=== PATIENT | male | born 1960 | race Caucasian/White ===

== ENCOUNTER 2017-01-30 00:42 | Emergency (ER) | payer OTHER, MEDICARE, MEDICAID ==
[~2017-01-30] VITALS: Ht 172.7 cm; Wt 85.5 kg
[~2017-01-30 00:42] MED LIST: /FENT25PA TD; /QUET10TA OR; ABIL30TA4 OR; ASPI81TA83 OR; CRES40TA OR; ENDOCET PO; FLAG500T OR; FLEXERIL PO; HYDROCODONE/APAP PO; LISI2.5T OR; OXYC10TA97 OR; RISP3TAB16 OR; ROBA500T OR; SERO400T3 OR; TIZA4TAB PO; ZETI10TA OR; ZETI10TA PO
[2017-01-30 00:53] VITALS: BP 139/69
[2017-01-30] MEDS ORDERED: QUET1TAB10 (01:06)
[2017-01-30] MEDS ORDERED: LORA1TAB12 (01:06)
[2017-01-30] MEDS ORDERED: CLOZ100T2 (01:06)
[2017-01-30] MEDS ORDERED: LITH300C (01:06)
[2017-01-30] MEDS ORDERED: HYDR-3719 (01:06)
[2017-01-30] MEDS ORDERED: CLON-412 (01:06)
[2017-01-30] MEDS ORDERED: TOPI50TA4 (01:06)
[2017-01-30] MEDS ORDERED: VITA50003 (01:06)
[2017-01-30] MEDS ORDERED: TIZANIDINE (01:06)
[2017-01-30] MEDS ORDERED: METF1000 (01:06)
== END 2017-01-30 05:09 | disposition left against medical advice (07) ==
LOC: M ED 03:32
DX: Z04.1 Encounter for examination and observation following transport accident (principal); Z53.29 Procedure and treatment not carried out because of patient's decision for other reasons

== ENCOUNTER → 2018-09-21 | Outpatient (REF) | payer MEDICARE, MEDICAID ==
[~2018-09-21] MED LIST changes: +CLON-412; +CLOZ100T2; +HYDR-3719; +LITH300C; +LORA1TAB12; +METF10004; +QUET1TAB10; +TIZANIDINE; +TOPI50TA9; +VITA50005
== END ==
LOC: M LAB REF 14:13
PROVIDERS: ATTEND Physician Assistant
DX: J02.9 Acute pharyngitis, unspecified (principal)

== ENCOUNTER 2019-04-01 13:42 | Emergency (ER) | payer OTHER, MEDICARE, MEDICAID ==
[~2019-04-01] VITALS: Ht 175.3 cm; Wt 90.9 kg
[~2019-04-01 13:42] MED LIST changes: -/FENT25PA TD; -/QUET10TA OR; +FENT1DIS14 TD; +SERO1TAB OR
[2019-04-01 17:16] LABS: BASO # 0.1 10^3/uL (0.0-0.2); BASO % 0.7 % (0.0-1.0); EOS # 0.3 10^3/uL (0.0-0.50); EOS % 3.1 % (0.0-3.0); HEMATOCRIT 49.4 % (42.0-52.0); HEMOGLOBIN 15.8 g/dl (13.5-17.5); LYMPH # 2.9 10^3/uL (1.5-4.5); MEAN CORPUSCULAR HEMOGLOBIN 27.7 pg (27.0-33.0); MEAN CORPUSCULAR VOLUME 86.7 fl (80.0-96.0); MONO # 0.6 10^3/uL (0.0-0.8); MONO % 6.7 % (0.0-5.0); NEUTROPHILS # 5.5 10^3/uL (1.8-7.7); NEUTROPHILS % 58.2 % (36.0-66.0); PLATELET COUNT, AUTOMATED 209 10^3/uL (150-450); WHITE BLOOD COUNT 9.4 10^3/uL (4.0-10.0)
[2019-04-01] MEDS ORDERED: METAXALONE 800 MG TABLET PO ONE (19:45)
[2019-04-01] MEDS ORDERED: KETOROLAC 30 MG/ML VIAL (J1885) IM ONE (19:45)
[2019-04-01] MEDS ORDERED: SKEL800T97 PO (20:37)
[2019-04-01 20:47] VITALS: BP 154/74
[2019-04-01] MEDS ORDERED: CYCL10TA PO (20:49)
== END 2019-04-01 20:47 | disposition home or self-care (01) ==
LOC: M ED 13:42
DX: S39.012A Strain of muscle, fascia and tendon of lower back, initial encounter (principal); M54.17 Radiculopathy, lumbosacral region; X50.9XXA Other and unspecified overexertion or strenuous movements or postures, initial encounter; Y92.092 Bedroom in other non-institutional residence as the place of occurrence of the external cause; Y93.89 Activity, other specified; Y99.9 Unspecified external cause status; Z96.9 Presence of functional implant, unspecified; I10 Essential (primary) hypertension; E78.5 Hyperlipidemia, unspecified; F41.9 Anxiety disorder, unspecified; F32.9 Major depressive disorder, single episode, unspecified; Z86.19 Personal history of other infectious and parasitic diseases; Z72.0 Tobacco use; J30.89 Other allergic rhinitis; Z88.8 Allergy status to other drugs, medicaments and biological substances
CPT/HCPCS: 72131; 80047; 85025; 96372; 99283; J1885

== ENCOUNTER 2020-03-02 09:56 | Emergency (ER) | payer OTHER, MEDICARE, MEDICAID ==
[~2020-03-02 09:56] MED LIST changes: +CYCL-707 PO; -LORA1TAB12; +LORA1TAB4; +SKEL800T97 PO
[2020-03-02] MEDS ORDERED: methocarbamoL 500 MG TAB ONE (10:12)
[2020-03-02] MEDS ORDERED: KETOROLAC 30 MG/ML 1ML VIAL ONE (10:12)
--- NOTE | 2020-04-24 10:52 | REP ---
NONCONTRAST CT OF THE LUMBOSACRAL SPINE: HISTORY: Lower back pain and sciatica. TECHNIQUE: Axial noncontrast images from T11 through S1 with coronary and sagittal reformations. FINDINGS: Alignment and lordosis maintained. Advanced degenerative disc osteophyte complex at L5-S1 includes endplate sclerosis, anterior and posterior osteophytosis, significant disc space narrowing with vacuum phenomenon and small posterior disc bulge as well as hypertrophic facet changes which cause mild canal stenosis. No obvious impingement to the exiting nerve roots noted. There is a small posterior disc bulge at the L4-5 level with minimal disc space narrowing and mild hypertrophic facet changes causing minimal canal stenosis. There is no impingement to the exiting nerve roots. There is a small disc bulge at the L3-4 level with mild hypertrophic facet changes and minimal disc space narrowing. There is no evidence for impingement on the exiting nerve roots. The remainder of the lumbar spine appears relatively age appropriate. There is no evidence for acute fracture/compression injury. Alignment is maintained. IMPRESSION: 1. Degenerative spondylosis as described above, most notably involving the L5-S1 and L4-5 levels. 2. No acute fracture/compression injury or subluxation. MTDD
== END 2020-03-02 11:50 | disposition home or self-care (01) ==
LOC: M ED 09:56
DX: M54.42 Lumbago with sciatica, left side (principal); M51.37 Other intervertebral disc degeneration, lumbosacral region; Z91.030 Bee allergy status
CPT/HCPCS: 72131; 96372; 99282; J1885

== ENCOUNTER 2023-11-24 15:18 | Emergency (ER) | payer MEDICARE, MEDICAID ==
[~2023-11-24] VITALS: Ht 177.8 cm; Wt 86.6 kg
[2023-11-24 15:18] VITALS: TEMP 97
[~2023-11-24 15:18] MED LIST changes: -CLOZ100T2; +CLOZ100T5; +LORA1TAB23; -LORA1TAB4; -QUET1TAB10; +QUET300T2; +TOPI-21; -TOPI50TA9
[2023-11-24 16:07] LABS: BASO # 0.1 10^3/uL (0.0-0.2); BASO % 0.5 % (0.0-1.0); EOS # 0.2 10^3/uL (0.0-0.5); HEMATOCRIT 43.5 % (42.0-52.0); HEMOGLOBIN 13.3 g/dl (13.5-17.5); LYMPH # 1.5 10^3/uL (1.5-5.0); LYMPH % 16.2 % (24.0-44.0); MEAN CORPUSCULAR HEMOGLOBIN 27.5 pg (27.0-33.0); MEAN CORPUSCULAR HGB CONC 30.6 g/dl (32.0-36.5); MEAN CORPUSCULAR VOLUME 89.9 fl (80.0-96.0); MONO # 0.8 10^3/uL (0.0-0.8); MONO % 8.6 % (2.0-8.0); NEUTROPHILS # 6.7 10^3/uL (1.5-8.5); NEUTROPHILS % 72.5 % (36.0-66.0); PLATELET COUNT, AUTOMATED 201 10^3/uL (150-450); RED BLOOD COUNT 4.84 10^6/uL (4.30-6.10); WHITE BLOOD COUNT 9.2 10^3/uL (4.0-10.0)
[2023-11-24 16:22] VITALS: BP 190/112
[2023-11-24 16:22] LABS: D-DIMER QUANT 1.8 ug/mL (<0.5); INR 1.08; PARTIAL THROMBOPLASTIN TIME 25.2 SECONDS (24.8-34.2); PROTHROMBIN TIME 13.7 SECONDS (12.5-14.5)
[2023-11-24] MEDS: LABETALOL 100MG/20ML VIAL IV STA (16:22)
[2023-11-24 16:30] LABS: LIPASE 25 U/L (12-53)
[2023-11-24 16:32] LABS: ALBUMIN 2.3 G/DL (3.2-5.2); ALKALINE PHOSPHATASE 139 U/L (46-116); ALT/SGPT 37 U/L (7.0-40); AST/SGOT 23 U/L (<34); BILIRUBIN,DIRECT 0.1 MG/DL (<0.4); BILIRUBIN,TOTAL 0.3 MG/DL (0.3-1.2); BLOOD UREA NITROGEN 21 MG/DL (9-23); CALCIUM LEVEL 8.5 MG/DL (8.3-10.6); CARBON DIOXIDE LEVEL 31 MMOL/L (20-31); CHLORIDE LEVEL 106 MMOL/L (98-107); CK-MB VALUE MASS 5.1 NG/ML (<3.6); CREATININE FOR GFR 0.95 MG/DL (0.70-1.30); GLOMERULAR FILTRATION RATE > 60.0 (>49); GLUCOSE, FASTING 141 MG/DL (74-106); POTASSIUM SERUM 4.4 MMOL/L (3.5-5.1); SODIUM LEVEL 142 MMOL/L (136-145); TOTAL PROTEIN 5.8 G/DL (5.7-8.2)
[2023-11-24 16:36] LABS: FREE T4 1.08 NG/DL (0.89-1.76); THYROID STIMULATING HORMONE 2.096 uIU/ML (0.55-4.78)
[2023-11-24] MEDS ORDERED: ISOVUE-370 76% 100ML VIAL As Ordered ONE (16:38)
[2023-11-24 16:43] LABS: CPK CREATINE PHOSPHOKINASE 91 U/L (46-171)
[2023-11-24 17:33] LABS: CK-MB VALUE MASS 4.4 NG/ML (<3.6)
[2023-11-24 17:34] LABS: MB/CK RELATIVE INDEX 5.71 (< OR =4)
[2023-11-24] MEDS ORDERED: HEPARIN SOD (PORCINE) 5000UNITS/ML 1ML VIAL/SYRINGE IV ONE (17:45)
[2023-11-24] MEDS ORDERED: HEPARIN DRIP 25,000 UNITS in IV 1 EA IV SCH (17:45)
[2023-11-24] MEDS: FUROSEMIDE 40MG/4ML VIAL IV ONE (17:58)
[2023-11-24] MEDS: ASPIRIN 81MG CHEW TABLET PO ONE (17:58)
[2023-11-24 18:00] VITALS: BP 150/88; O2SAT 91
== END 2023-11-24 18:22 | disposition left against medical advice (07) ==
LOC: M ED 15:18
DX: I21.4 Non-ST elevation (NSTEMI) myocardial infarction (principal); I50.22 Chronic systolic (congestive) heart failure; I45.10 Unspecified right bundle-branch block; E11.9 Type 2 diabetes mellitus without complications; I11.0 Hypertensive heart disease with heart failure; E78.5 Hyperlipidemia, unspecified; F17.210 Nicotine dependence, cigarettes, uncomplicated; Z88.8 Allergy status to other drugs, medicaments and biological substances; Z91.030 Bee allergy status; Z53.9 Procedure and treatment not carried out, unspecified reason
CPT/HCPCS: 71045; 71275; 80048; 80076; 82550; 82553; 83690; 83880; 84439; 84443; 84484; 85025; 85379; 85610; 85730; 93005; 93041; 93970; 94760; 96374; 96375; 99284; J1920; J1940; Q9967

== ENCOUNTER 2023-12-28 05:51 | Emergency (ER) | payer MEDICARE, MEDICAID ==
[~2023-12-28] VITALS: Ht 172.7 cm; Wt 85.9 kg
[2023-12-28 06:22] LABS: VENOUS BASE EXCESS -0.9 (-2.0-2.0); VENOUS O2 SATURATION 89.2 % (60.0-80.0); VENOUS PARTIAL PRESSURE CO2 40.9 mmHg (38.0-50.0); VENOUS PARTIAL PRESSURE O2 59.3 mmHg (30.0-50.0); VENOUS PH 7.387 UNITS (7.330-7.430); VENOUS STANDARD HCO3 23.5 MMOL/L; VENOUS TOTAL CO2 25.3 MMOL/L (24.0-28.0)
[2023-12-28 06:27] LABS: BASO # 0.1 10^3/uL (0.0-0.2); BASO % 0.7 % (0.0-1.0); EOS # 0.2 10^3/uL (0.0-0.5); EOS % 1.5 % (0.0-3.0); HEMATOCRIT 42.1 % (42.0-52.0); HEMOGLOBIN 13.2 g/dl (13.5-17.5); LYMPH # 1.4 10^3/uL (1.5-5.0); LYMPH % 13.7 % (24.0-44.0); MEAN CORPUSCULAR HEMOGLOBIN 27.2 pg (27.0-33.0); MEAN CORPUSCULAR HGB CONC 31.4 g/dl (32.0-36.5); MEAN CORPUSCULAR VOLUME 86.8 fl (80.0-96.0); MONO # 0.8 10^3/uL (0.0-0.8); MONO % 7.8 % (2.0-8.0); NEUTROPHILS # 7.8 10^3/uL (1.5-8.5); NEUTROPHILS % 75.9 % (36.0-66.0); PLATELET COUNT, AUTOMATED 233 10^3/uL (150-450); RED BLOOD COUNT 4.85 10^6/uL (4.30-6.10); WHITE BLOOD COUNT 10.3 10^3/uL (4.0-10.0)
[2023-12-28 06:57] LABS: ALBUMIN 2.4 G/DL (3.2-5.2); ALKALINE PHOSPHATASE 156 U/L (46-116); ALT/SGPT 35 U/L (7.0-40); AST/SGOT 28 U/L (<34); BILIRUBIN,DIRECT 0.2 MG/DL (<0.4); BILIRUBIN,TOTAL 0.7 MG/DL (0.3-1.2); BLOOD UREA NITROGEN 19 MG/DL (9-23); CALCIUM LEVEL 8.6 MG/DL (8.3-10.6); CARBON DIOXIDE LEVEL 26 MMOL/L (20-31); CHLORIDE LEVEL 106 MMOL/L (98-107); CK-MB VALUE MASS 2.8 NG/ML (<3.6); CREATININE FOR GFR 1.07 MG/DL (0.70-1.30); GLOMERULAR FILTRATION RATE > 60.0 (>49); GLUCOSE, FASTING 130 MG/DL (74-106); POTASSIUM SERUM 4.5 MMOL/L (3.5-5.1); SODIUM LEVEL 137 MMOL/L (136-145); TOTAL PROTEIN 5.7 G/DL (5.7-8.2)
[2023-12-28 06:59] LABS: CPK CREATINE PHOSPHOKINASE 88 U/L (46-171); MB/CK RELATIVE INDEX 3.18 (< OR =4)
[2023-12-28] MEDS: FUROSEMIDE 40MG/4ML VIAL IV ONE (07:47)
[2023-12-28] MEDS: ASPIRIN 81MG CHEW TABLET PO ONE (07:47)
[2023-12-28] MEDS ORDERED: ISOVUE-370 76% 100ML VIAL As Ordered ONE (08:04)
[2023-12-28] MEDS ORDERED: HOME MED LIST COMPLETE! XX SCH (09:25)
[2023-12-28] MEDS ORDERED: HEPARIN SOD (PORCINE) 5000UNITS/ML 1ML VIAL/SYRINGE IV PRN (09:30)
[2023-12-28] MEDS ORDERED: HEPARIN SOD (PORCINE) 5000UNITS/ML 1ML VIAL/SYRINGE IV ONE (09:30)
[2023-12-28] MEDS: HEPARIN SOD (PORCINE) 5000UNITS/ML 1ML VIAL/SYRINGE IV ONE (10:31)
[2023-12-28] MEDS: HEPARIN DRIP 25,000 UNITS in IV 1 EA IV SCH (10:35)
[2023-12-28] MEDS ORDERED: IPRATROPIUM 0.5MG/ALBUTEROL 2.5MG INH SOL UD 3ML (DUONEB) NEB PRN (11:50)
[2023-12-28] MEDS: POTASSIUM CHLORIDE 10MEQ SR TABLET PO ONE (12:50)
[2023-12-28 14:00] VITALS: TEMP 97.9
[2023-12-28] MEDS: FUROSEMIDE 40MG/4ML VIAL IV SCH ×2 (14:09→21:51)
[2023-12-28 17:10] LABS: BLOOD UREA NITROGEN 20 MG/DL (9-23); CALCIUM LEVEL 8.5 MG/DL (8.3-10.6); CARBON DIOXIDE LEVEL 29 MMOL/L (20-31); CHLORIDE LEVEL 107 MMOL/L (98-107); GLOMERULAR FILTRATION RATE > 60.0 (>49); GLUCOSE, FASTING 95 MG/DL (74-106); POTASSIUM SERUM 4.2 MMOL/L (3.5-5.1); SODIUM LEVEL 144 MMOL/L (136-145)
[2023-12-28] MEDS: POTASSIUM CHLORIDE 10MEQ SR TABLET PO SCH (21:51)
[2023-12-28] MEDS: cefTRIAXone SOD 2 GM in D5W MINI-BAG PLUS 50 ML IV ONE (23:41)
[2023-12-29 05:00] VITALS: BP 142/97
[2023-12-29 05:45] VITALS: O2SAT 95
== END 2023-12-29 06:23 | disposition short-term general hospital (02) ==
LOC: M ED 05:51
DX: I21.4 Non-ST elevation (NSTEMI) myocardial infarction (principal); I50.32 Chronic diastolic (congestive) heart failure; I27.20 Pulmonary hypertension, unspecified; J90 Pleural effusion, not elsewhere classified; R91.1 Solitary pulmonary nodule; R18.8 Other ascites; R00.0 Tachycardia, unspecified; I45.19 Other right bundle-branch block; I44.4 Left anterior fascicular block; J44.9 Chronic obstructive pulmonary disease, unspecified; F17.200 Nicotine dependence, unspecified, uncomplicated; F10.10 Alcohol abuse, uncomplicated; Z91.030 Bee allergy status; Z88.8 Allergy status to other drugs, medicaments and biological substances
CPT/HCPCS: 71045; 71275; 80048; 80076; 82550; 82553; 82803; 83735; 83880; 84484; 85025; 85730; 87486; 87581; 87633; 87798; 93005; 93041; 93306; 93971; 94760; 96365; 96366; 96375; 96376; 99285; J0696; J1940; Q9967

== ENCOUNTER → 2024-01-04 | Outpatient (CLI) | payer MEDICARE, MEDICAID ==
[2024-01-04 16:22] LABS: HEMOGLOBIN A1c 6.6 % (4.0-6.0)
[2024-01-04 16:29] LABS: BLOOD UREA NITROGEN 25 MG/DL (9-23); CALCIUM LEVEL 9.1 MG/DL (8.3-10.6); CARBON DIOXIDE LEVEL 33 MMOL/L (20-31); CHLORIDE LEVEL 105 MMOL/L (98-107); CHOLESTEROL LEVEL 169 MG/DL (<200); CHOLESTEROL RISK RATIO 3.55 (<5); CREATININE FOR GFR 1.06 MG/DL (0.70-1.30); GLOMERULAR FILTRATION RATE > 60.0 (>49); GLUCOSE, FASTING 92 MG/DL (74-106); HDL CHOLESTEROL 47.5 MG/DL (>40); LDL CHOLESTEROL 106.5 MG/DL (<100); NON-HDL-C 121.5 MG/DL; POTASSIUM SERUM 4.7 MMOL/L (3.5-5.1); SODIUM LEVEL 141 MMOL/L (136-145); TRIGLYCERIDES LEVEL 75 MG/DL (<150)
== END ==
LOC: M PLALAB 13:42
PROVIDERS: ATTEND Student in an Organized Health Care Education/Training Program
DX: I50.40 Unspecified combined systolic (congestive) and diastolic (congestive) heart failure (principal); Z79.899 Other long term (current) drug therapy

== ENCOUNTER → 2024-02-16 | Outpatient (CLI) | payer MEDICARE, MEDICAID ==
[2024-02-16 18:07] LABS: BLOOD UREA NITROGEN 22 MG/DL (9-23); CALCIUM LEVEL 9.5 MG/DL (8.3-10.6); CARBON DIOXIDE LEVEL 32 MMOL/L (20-31); CHLORIDE LEVEL 106 MMOL/L (98-107); CREATININE FOR GFR 0.89 MG/DL (0.70-1.30); GLOMERULAR FILTRATION RATE > 60.0 (>49); GLUCOSE, FASTING 94 MG/DL (74-106); POTASSIUM SERUM 4.7 MMOL/L (3.5-5.1); SODIUM LEVEL 140 MMOL/L (136-145)
== END ==
LOC: M PLAIMG 16:32
PROVIDERS: ATTEND Student in an Organized Health Care Education/Training Program
DX: I50.40 Unspecified combined systolic (congestive) and diastolic (congestive) heart failure (principal)

== ENCOUNTER → 2024-02-18 | Outpatient (REF) | payer MEDICARE, MEDICAID | LOC: M SFHCPLAZ 11:14 | PROVIDERS: ATTEND Family Medicine | DX: I50.40 Unspecified combined systolic (congestive) and diastolic (congestive) heart failure (principal) ==

== ENCOUNTER → 2024-04-02 | Outpatient (CLI) | payer MEDICARE, MEDICAID | LOC: M RAD 13:06 | PROVIDERS: ATTEND Student in an Organized Health Care Education/Training Program | DX: M79.661 Pain in right lower leg (principal) ==

== ENCOUNTER 2024-08-06 23:04 | Emergency (ER) | payer MEDICARE, MEDICAID ==
[~2024-08-06] VITALS: Ht 172.7 cm; Wt 76.6 kg
[2024-08-06 23:51] LABS: BASO % 0.3 % (0.0-1.0); EOS # 0.1 10^3/uL (0.0-0.5); EOS % 0.6 % (0.0-3.0); HEMATOCRIT 44.9 % (42.0-52.0); HEMOGLOBIN 14.8 g/dl (13.5-17.5); LYMPH # 1.3 10^3/uL (1.5-5.0); LYMPH % 16.6 % (24.0-44.0); MEAN CORPUSCULAR HEMOGLOBIN 27.6 pg (27.0-33.0); MEAN CORPUSCULAR VOLUME 83.8 fl (80.0-96.0); MONO # 0.9 10^3/uL (0.0-0.8); MONO % 11.1 % (2.0-8.0); NEUTROPHILS # 5.5 10^3/uL (1.5-8.5); PLATELET COUNT, AUTOMATED 179 10^3/uL (150-450); RED BLOOD COUNT 5.36 10^6/uL (4.30-6.10); WHITE BLOOD COUNT 7.7 10^3/uL (4.0-10.0)
[2024-08-07 00:30] LABS: BLOOD UREA NITROGEN 19 MG/DL (9-23); CALCIUM LEVEL 8.2 MG/DL (8.3-10.6); CARBON DIOXIDE LEVEL 27 MMOL/L (20-31); CHLORIDE LEVEL 98 MMOL/L (98-107); CK-MB VALUE MASS < 1.0 NG/ML (<3.6); CPK CREATINE PHOSPHOKINASE 81 U/L (46-171); CREATININE FOR GFR 0.88 MG/DL (0.70-1.30); GLOMERULAR FILTRATION RATE > 60.0 (>49); GLUCOSE, FASTING 100 MG/DL (74-106); MB/CK RELATIVE INDEX 1.23 (< OR =4); POTASSIUM SERUM 4.2 MMOL/L (3.5-5.1); SODIUM LEVEL 132 MMOL/L (136-145)
[2024-08-07] MEDS ORDERED: ISOVUE-370 76% 100ML VIAL As Ordered ONE (00:56)
[2024-08-07] MEDS: methylPREDNISolone 125MG 2ML VIAL IV ONE (00:56)
[2024-08-07] MEDS: IPRATROPIUM 0.5MG/ALBUTEROL 2.5MG INH SOL UD 3ML (DUONEB) NEB ONE (00:56)
[2024-08-07 01:08] LABS: CK-MB VALUE MASS < 1.0 NG/ML (<3.6)
[2024-08-07 01:10] LABS: CPK CREATINE PHOSPHOKINASE 84 U/L (46-171); MB/CK RELATIVE INDEX 1.19 (< OR =4)
[2024-08-07 03:10] LABS: CK-MB VALUE MASS < 1.0 NG/ML (<3.6)
[2024-08-07 03:11] LABS: CPK CREATINE PHOSPHOKINASE 80 U/L (46-171); MB/CK RELATIVE INDEX 1.25 (< OR =4)
[2024-08-07] MEDS ORDERED: PRED20TA PO (03:16)
[2024-08-07 03:22] VITALS: BP 109/59; TEMP 98.8; O2SAT 94
== END 2024-08-07 03:23 | disposition left against medical advice (07) ==
LOC: M ED 23:04
DX: J09.X2 Influenza due to identified novel influenza A virus with other respiratory manifestations (principal); R09.02 Hypoxemia; I45.10 Unspecified right bundle-branch block; I44.4 Left anterior fascicular block; I25.119 Atherosclerotic heart disease of native coronary artery with unspecified angina pectoris; I50.22 Chronic systolic (congestive) heart failure; I25.2 Old myocardial infarction; F17.210 Nicotine dependence, cigarettes, uncomplicated; F10.10 Alcohol abuse, uncomplicated; Z91.030 Bee allergy status; Z88.8 Allergy status to other drugs, medicaments and biological substances; Z79.52 Long term (current) use of systemic steroids; Z53.9 Procedure and treatment not carried out, unspecified reason
CPT/HCPCS: 71045; 71275; 80048; 82550; 82553; 84484; 85025; 87486; 87581; 87633; 87798; 93005; 93041; 94640; 94760; 96374; 99285; J2919; Q9967

== ENCOUNTER → 2025-03-05 | Outpatient (REF) | payer MEDICARE, MEDICAID ==
[~2025-03-05] MED LIST changes: +PRED20TA PO
== END ==
LOC: M SFHCPLAZ 12:25
PROVIDERS: ATTEND Family Medicine
DX: Z53.9 Procedure and treatment not carried out, unspecified reason (principal)

== ENCOUNTER 2025-03-15 05:51 | Emergency (ER) | payer MEDICARE, MEDICAID ==
[~2025-03-15] VITALS: Ht 175.3 cm; Wt 79.5 kg
[2025-03-15 06:13] LABS: BASO # 0.1 10^3/uL (0.0-0.2); BASO % 0.6 % (0.0-1.0); EOS # 0.3 10^3/uL (0.0-0.5); EOS % 2.4 % (0.0-3.0); LYMPH # 1.8 10^3/uL (1.5-5.0); LYMPH % 16.5 % (24.0-44.0); MONO # 0.9 10^3/uL (0.0-0.8); MONO % 8.1 % (2.0-8.0); NEUTROPHILS # 8.0 10^3/uL (1.5-8.5); NEUTROPHILS % 72.0 % (36.0-66.0); PLATELET COUNT, AUTOMATED 271 10^3/uL (150-450)
[2025-03-15 06:25] LABS: INR 0.89
[2025-03-15] MEDS ORDERED: NITROGLYCERIN 0.4 MG SUBL TABLET SL PRN (06:50)
[2025-03-15] MEDS: ACETAMINOPHEN 500 MG TAB PO ONE (07:23)
[2025-03-15 08:00] LABS: ALT/SGPT 24.0 U/L (7.0-40); AST/SGOT 30.0 U/L (<34); CALCIUM LEVEL 8.2 MG/DL (8.3-10.6); CARBON DIOXIDE LEVEL 27.0 MMOL/L (20-31); CHLORIDE LEVEL 103.0 MMOL/L (98-107); CK-MB VALUE MASS 1.1 NG/ML (<3.6); CPK CREATINE PHOSPHOKINASE 42.0 U/L (46-171); CREATININE FOR GFR 0.93 MG/DL (0.70-1.30); GLOMERULAR FILTRATION RATE 90.0 (>49); MB/CK RELATIVE INDEX 2.61 (< OR =4); POTASSIUM SERUM 5.1 MMOL/L (3.5-5.1); SODIUM LEVEL 139.0 MMOL/L (136-145)
[2025-03-15 08:54] LABS: CK-MB VALUE MASS 1.0 NG/ML (<3.6)
[2025-03-15 08:56] LABS: CPK CREATINE PHOSPHOKINASE 30.0 U/L (46-171); MB/CK RELATIVE INDEX 3.33 (< OR =4)
[2025-03-15] MEDS ORDERED: METF10004 PO (10:19)
[2025-03-15] MEDS ORDERED: ATOR40TA75 PO (10:19)
[2025-03-15] MEDS ORDERED: NITR0.3S4 PO (10:19)
[2025-03-15] MEDS ORDERED: JARD1TAB PO (10:19)
[2025-03-15] MEDS ORDERED: METO1TAB32 PO (10:19)
[2025-03-15] MEDS ORDERED: FURO40TA2 PO (10:19)
[2025-03-15] MEDS ORDERED: TRAM50TA2 PO (10:19)
[2025-03-15] MEDS ORDERED: EPIN0.3I11 INJ (10:19)
[2025-03-15] MEDS ORDERED: CYCL-707 PO (10:19)
[2025-03-15] MEDS ORDERED: LISI10TA22 PO (10:19)
[2025-03-15] MEDS ORDERED: SPIR-10 PO (10:19)
[2025-03-15] MEDS ORDERED: HOME MED LIST COMPLETE! XX SCH (10:20)
[2025-03-15 11:28] LABS: CK-MB VALUE MASS 1.7 NG/ML (<3.6); CPK CREATINE PHOSPHOKINASE 33.0 U/L (46-171); MB/CK RELATIVE INDEX 5.15 (< OR =4)
[2025-03-15 11:46] VITALS: BP 136/64; O2SAT 97
[2025-03-15 12:06] VITALS: TEMP 97.6
== END 2025-03-15 12:07 | disposition home or self-care (01) ==
LOC: M ED 05:51
DX: R07.9 Chest pain, unspecified (principal); I45.10 Unspecified right bundle-branch block; E11.9 Type 2 diabetes mellitus without complications; I10 Essential (primary) hypertension; F17.200 Nicotine dependence, unspecified, uncomplicated; Z91.030 Bee allergy status; Z88.8 Allergy status to other drugs, medicaments and biological substances; Z79.02 Long term (current) use of antithrombotics/antiplatelets; Z79.4 Long term (current) use of insulin; Z79.899 Other long term (current) drug therapy

== ENCOUNTER → 2025-03-27 | Outpatient (CLI) | payer MEDICARE, MEDICAID ==
[~2025-03-27] MED LIST changes: +ATOR40TA75 PO; +EPIN0.3I11 INJ; +FURO40TA2 PO; +JARD1TAB PO; +LISI10TA22 PO; +METF10004 PO; +METO1TAB32 PO; +NITR0.3S4 PO; +SPIR-10 PO; +TRAM50TA2 PO
== END ==
LOC: M SOG 08:27
PROVIDERS: ATTEND Orthopaedic Surgery
DX: R10.2 Pelvic and perineal pain (principal); M16.0 Bilateral primary osteoarthritis of hip

== ENCOUNTER → 2025-05-20 | Outpatient (CLI) | payer MEDICARE, MEDICAID ==
[2025-05-20 12:04] LABS: PLATELET COUNT, AUTOMATED 332 10^3/uL (150-450)
[2025-05-20 12:32] LABS: CALCIUM LEVEL 8.4 MG/DL (8.3-10.6); CARBON DIOXIDE LEVEL 32 MMOL/L (20-31); CHLORIDE LEVEL 103 MMOL/L (98-107); CREATININE FOR GFR 0.80 MG/DL (0.70-1.30); GLOMERULAR FILTRATION RATE > 90.0 (>49); PHOSPHORUS LEVEL 2.8 MG/DL (2.4-5.1); POTASSIUM SERUM 4.4 MMOL/L (3.5-5.1); SODIUM LEVEL 141 MMOL/L (136-145)
== END ==
LOC: M LAB 11:18
PROVIDERS: ATTEND Internal Medicine Cardiovascular Disease
DX: Z01.810 Encounter for preprocedural cardiovascular examination (principal); I50.42 Chronic combined systolic (congestive) and diastolic (congestive) heart failure; I11.0 Hypertensive heart disease with heart failure

== ENCOUNTER → 2025-05-27 | Outpatient (CLI) | payer MEDICARE, MEDICAID ==
[~2025-05-27] MED LIST changes: +ISOVUE-300 61% 100 ML VIAL As Ordered ONE; +methylPREDNISolone SUSP 40 MG/ML 1 ML VIAL As Ordered ONE
== END ==
LOC: M RAD 14:18
PROVIDERS: ATTEND Orthopaedic Surgery
DX: M16.0 Bilateral primary osteoarthritis of hip (principal)
CPT/HCPCS: 20610; 77002; J0665; J1010; Q9967

== ENCOUNTER → 2025-07-17 | Outpatient (CLI) | payer MEDICARE, MEDICAID ==
[~2025-07-17] MED LIST changes: -ISOVUE-300 61% 100 ML VIAL As Ordered ONE; -methylPREDNISolone SUSP 40 MG/ML 1 ML VIAL As Ordered ONE
[2025-07-17 13:55] LABS: BASO # 0.1 10^3/uL (0.0-0.2); BASO % 0.9 % (0.0-1.0); EOS # 0.3 10^3/uL (0.0-0.5); EOS % 2.5 % (0.0-3.0); LYMPH # 2.1 10^3/uL (1.5-5.0); LYMPH % 19.5 % (24.0-44.0); MONO # 0.9 10^3/uL (0.0-0.8); MONO % 8.1 % (2.0-8.0); NEUTROPHILS # 7.2 10^3/uL (1.5-8.5); NEUTROPHILS % 68.4 % (36.0-66.0); PLATELET COUNT, AUTOMATED 284 10^3/uL (150-450)
[2025-07-17 14:16] LABS: INR 0.95
[2025-07-17 14:30] LABS: ALT/SGPT 33 U/L (7.0-40); AST/SGOT 24 U/L (<34); C REACTIVE PROTEIN QUANTITATIV < 0.50 MG/DL (<1.0); CALCIUM LEVEL 8.4 MG/DL (8.3-10.6); CARBON DIOXIDE LEVEL 30 MMOL/L (20-31); CHLORIDE LEVEL 104 MMOL/L (98-107); CREATININE FOR GFR 0.94 MG/DL (0.70-1.30); GLOMERULAR FILTRATION RATE 88.9 (>49); POTASSIUM SERUM 5.2 MMOL/L (3.5-5.1); SODIUM LEVEL 138 MMOL/L (136-145)
[2025-07-17 14:33] LABS: TOTAL 25(OH) VITAMIN D 21.2 NG/ML (20.0-100.0)
[2025-07-17 15:03] LABS: ESTIMATED AVERAGE GLUCOSE 140.0 MG/DL (60-110)
== END ==
LOC: M LAB 12:43
PROVIDERS: ATTEND Orthopaedic Surgery
DX: M16.0 Bilateral primary osteoarthritis of hip (principal); Z01.818 Encounter for other preprocedural examination

== ENCOUNTER → 2025-07-17 | Outpatient (CLI) | payer MEDICARE, MEDICAID | LOC: M CARPUL 12:39 | PROVIDERS: ATTEND Internal Medicine Cardiovascular Disease | DX: I50.42 Chronic combined systolic (congestive) and diastolic (congestive) heart failure (principal) ==

== ENCOUNTER → 2025-07-21 | Outpatient (REF) | payer MEDICARE, MEDICAID | LOC: M LAB REF 16:54 | PROVIDERS: ATTEND Orthopaedic Surgery | DX: Z01.818 Encounter for other preprocedural examination (principal); M16.0 Bilateral primary osteoarthritis of hip ==